=== PATIENT | male | born 1955 | race Caucasian/White ===

== ENCOUNTER 2022-05-16 09:16 | Outpatient (CLI) | payer BC, SELFPAY ==
[2022-05-16 12:59] LABS: Albumin* 4.3 g/dL (3.3-5.0); Chloride* 105 mmol/L (96-114); Sodium* 140 mmol/L (135-149)
[2022-05-16 13:00] LABS: Potassium* 4.7 mmol/L (3.6-5.1)
[2022-05-16 13:01] LABS: Cholesterol* 187 mg/dL (90-199)
[2022-05-16 13:02] LABS: Alanine Aminotransferase* 40 U/L (4-50); Alkaline Phosphatase* 70 U/L (40-150); Aspartate Amino Transferase* 28 U/L (12-35); Bilirubin Total* 0.7 mg/dL (0.1-1.5); Blood Urea Nitrogen* 24 mg/dL (7-30); Carbon Dioxide* 30 mmol/L (20-32); Creatinine* 1.1 mg/dL (0.5-1.5); Estimated Glomerular Filt Rate 75 ml/min; Glucose* 100 mg/dL (60-115); Total Protein* 6.9 g/dL (6.0-8.3); Triglycerides* 185 mg/dL (40-149)
[2022-05-16 13:03] LABS: Calcium* 9.3 mg/dL (8.4-10.6); HDL Cholesterol* 44 mg/dL (>=40); LDL Cholesterol Calculated 106 mg/dL (<100)
[2022-05-16 13:28] LABS: PSA Screen* 2.29 ng/mL (0.10-4.00)
== END 2022-05-16 09:17 | disposition home or self-care (01) ==
PROVIDERS: PCP Family Medicine; Visit Provider Family Medicine
DX: Z00.00 Encounter for general adult medical examination without abnormal findings (principal); R03.0 Elevated blood-pressure reading, without diagnosis of hypertension; Z12.5 Encounter for screening for malignant neoplasm of prostate; Z12.11 Encounter for screening for malignant neoplasm of colon; Z13.6 Encounter for screening for cardiovascular disorders
CPT/HCPCS: 80053; 80061; 84153

== ENCOUNTER 2022-06-12 08:35 | Outpatient (CLI) | payer BC, SELFPAY | END 2022-06-12 08:36 | disposition home or self-care (01) | LOC: OP CLINIC 08:36 | PROVIDERS: PCP Family Medicine; Visit Provider Surgery | DX: Z12.11 Encounter for screening for malignant neoplasm of colon (principal); K63.5 Polyp of colon | CPT/HCPCS: 45385; 88305; J1200; J2250; J3010 ==

== ENCOUNTER 2024-12-22 09:14 | Outpatient (CLI) | payer OTHER, SELFPAY | END 2024-12-22 09:15 | disposition home or self-care (01) | LOC: NFLDREF 12-27 12:40 | PROVIDERS: Visit Provider Family Medicine | DX: Z00.00 Encounter for general adult medical examination without abnormal findings (principal); Z13.6 Encounter for screening for cardiovascular disorders; Z13.1 Encounter for screening for diabetes mellitus; Z12.5 Encounter for screening for malignant neoplasm of prostate | CPT/HCPCS: 80053; 80061; G0103 ==

== ENCOUNTER 2025-03-13 15:44 | Outpatient (CLI) | payer OTHER, SELFPAY | END 2025-03-13 15:45 | disposition home or self-care (01) | LOC: CT 15:46 | PROVIDERS: PCP Family Medicine; Visit Provider Orthopaedic Surgery Sports Medicine | DX: M17.12 Unilateral primary osteoarthritis, left knee (principal); Z01.818 Encounter for other preprocedural examination; Z96.652 Presence of left artificial knee joint | CPT/HCPCS: 73700 ==

== ENCOUNTER 2025-04-05 06:57 | Day surgery (SDC) | payer OTHER, SELFPAY ==
[2025-04-05] VITALS (19 sets, daily range): BP systolic 84–147; BP diastolic 48–99; PULSE 65–92; RESP 12–21; TEMP 35.8–37.1; O2SAT 86–98; BMI 29.5
[2025-04-05] MEDS: SODIUM CHLORIDE 0.9 % (FLUSH) 10 ML SYRINGE IVF (07:30)
[2025-04-05] MEDS: LACTATED RINGERS 1000 ML 1,000 ML 100 ML IV ×3 (07:30→12:50)
--- NOTE | 2025-04-05 07:42 | W.PM.H&PU ---
History & Physical Update History & Physical Update H&P Reviewed and patient assessed: No changes noted
--- NOTE | 2025-04-05 08:29 | SUR.PREOP ---
TIME?OUT:?0830 PT/RN/MDA?VERIFICATION?OF?SURGICAL?SITE,?PROCEDURE,?AND?CONSENT OBTAINED?PRIOR?TO?INVASIVE?PROCEDURE.
[2025-04-05] MEDS: ACETAMINOPHEN 500 MG TABLET 1000 MG PO (08:30)
[2025-04-05] MEDS: OXYCODONE (CR) 10 MG TAB.ER.12H PO (08:30)
[2025-04-05] MEDS: MIDAZOLAM HCL 1 MG/ML inj IVP (08:31)
[2025-04-05] MEDS: TRANEXAMIC ACID 100 MG/ML INJ 1000 MG IV (09:17)
--- NOTE | 2025-04-05 10:40 | P.ORPRC_ITS ---
Procedure Note Date of procedure: 04/05/25 Procedure: PREOPERATIVE DIAGNOSIS: 1. Left knee osteoarthritis, primary, severe 2. Multiple osteochondromatosis POSTOPERATIVE DIAGNOSIS: 1. Left knee osteoarthritis, primary, severe 2. Multiple osteochondromatosis PROCEDURE: 1. Left total knee arthroplasty, Press-Fit, Rotating Platform - No tourniquet SURGEON: Rajeev Yip MD. CUFFING MACHINE OPERATOR: AKILA Morris - Of note, a skilled curriculum assistant was critical for this case to aid in patient positioning, tissue retraction, limb manipulation/positioning, and closure. ANESTHESIA: Spinal anesthetic EBL: 100ml IMPLANTS: DePuy J&J uncemented TKA - Attune PS pressfit femur size 7 - utilizing [employer] femoral jig Size 6 pressfit tibia Rotating Platform 5mm RP poly spacer 38 mm Affixium patella TOURNIQUET: None COMPLICATIONS: None evident INDICATIONS: The patient is a pleasant 69-year-old male who has experienced severe left knee pain and difficulty bearing weight. Workup included x-rays which revealed severe osteoarthrosis in the knee. Given the deformity, the dysfunction, and the pain, as well as the failure of nonoperative management, recommendation was made for surgery. FINDINGS: Full-thickness chondral loss diffusely throughout the knee including all 3 compartments. Degenerative meniscus pathology medial greater than lateral. Moderate effusion upon entering the joint. Multiple osteochondromas encountered throughout the distal femur and proximal tibia. DESCRIPTION OF PROCEDURE: Following a thorough discussion of risks, benefits, and alternatives consent was obtained and the left knee was marked. The patient was brought to the operating room and placed supine on the operating table. Induction of anesthesia was undertaken. 2 g IV Ancef and 1 g tranexamic acid was administered within 1 hr of incision preoperatively. Proper time-out was performed identifying proper patient, site, procedure. The operative extremity was prepped and draped in the appropriate sterile fashion using ChloraPrep after the patient was positioned supine with all bony prominences well padded. A longitudinal, anterior, midline skin incision was made starting approximately 3cm proximal to the superior pole of the patella and advanced distal to the tibial tubercle. A sub vastus approach was utilized. After mobilizing the patella, retropatellar fatpad was resected and the synovium in the suprapatellar pouch excised to visualize the anterior femoral cortex. Patellar prep showed initial measurement/thickness of 24 mm. It was resected back to approximately 14 mm. The patella prep was completed with drilling and a trial placed followed by a protector plate until final component implantation. Femoral preparation was performed utilizing [employer] femoral jig. Consistent with the preoperative plan/template, the distal cutting guide was placed with 9? of valgus and 11 mm cut on the distal femur due to a 18-20+ degree flexion contracture. Femur was sized consistent with the preoperative plan to a size 7 with rotation established from the plan. This was double checked with an Meet wing. This was found to have a best fit with the sizing noted above. The 4 in 1 cutting block was then placed, and the distal femur shaped accordingly. The box cut was then completed. We turned our attention to the proximal tibia. Extramedullary guide was utilized for cutting with the goal of being 90 degree cut from the mechanical axis of the tibia in the varus/valgus plane utilizing tibial crest as the primary alignment. Initially a 3 mm resection was performed from the medial tibial plateau. An additional 2 mm of tibial resection was needed to achieve proper balance in both flexion & extension. Ultimately, balancing was achieved in both flexion and extension in both varus and valgus. The knee was able to achieve full extension comfortably. It was sized to be a best fit with as noted above. At this stage, trial implants were removed, the tibia and femoral and patellar components were opened and inserted. The real poly spacer was opened and inserted. A 3 min Betadine soak performed. Finally, a final irrigation round with normal saline was performed. Closure performed with 0 PDS and #0 Stratafix for the quad tendon/retinaculum. 2-0 Vicryl/Stratafix for the subcutaneous and 4-0 Monocryl for subcuticular closure. Dressings were applied and the patient was awoken from anesthesia and transferred the PACU in stable condition. A skilled curriculum assistant was critical for this case to aid in patient positioning, tissue retraction, bone exposure, limb manipulation/positioning, patient safety, and closure. PLAN: 1. Weight bear as tolerated operative extremity. 2. 23 hr perioperative antibiotics. 3. Ice. 4. PT/OT consults for ambulation assistance/mobility education. 5. Social work consult for discharge planning. 6. DVT prophylaxis with at SCDs, and aspirin twice daily.
--- NOTE | 2025-04-05 10:59 | P.NB_ITS ---
Nerve Block Nerve Block Time Seen by Provider: 08:30 Date Seen: 04/05/25 Type of block requested by surgeon for post-operative analgesia: geniculars Side: left Time out performed: Yes Verification of patient name: Yes Verification of date of : Yes Site marking: site marked Name of person performing procedure: Wei Continuous monitoring Was continuous monitoring of O2 sat, B/P, secured entrance monitor, recorded every 15 minutes?: Yes Procedure Checklist: sterile prep, needles and gloves Ultrasound guided. Images saved: Yes Medications given in 5ml increments after negative aspiration: Marcaine %: 0.25 mL: 9 Needle gauge: 25 Patient tolerated procedure well: Yes Block Charges Block Charge (with Pro Fee): Genicular Nerve Block
--- NOTE | 2025-04-05 10:59 | P.NB_ITS ---
Nerve Block Nerve Block Time Seen by Provider: 08:30 Date Seen: 04/05/25 Type of block requested by surgeon for post-operative analgesia: adductor canal Side: left Time out performed: Yes Verification of patient name: Yes Verification of date of : Yes Site marking: site marked Name of person performing procedure: Wei Continuous monitoring Was continuous monitoring of O2 sat, B/P, medical equipment repair technician, recorded every 15 minutes?: Yes Procedure Checklist: sterile prep, needles and gloves Ultrasound guided. Images saved: Yes Medications given in 5ml increments after negative aspiration: Marcaine %: 0.25 mL: 15 Needle gauge: 20 Precedex (mcg): 25 Patient tolerated procedure well: Yes Block Charges Block Charge (with Pro Fee): Femoral Nerve Use of Ultrasound Machine for Block: Yes- US Guidance/pain block
--- NOTE | 2025-04-05 11:10 | CRLHL7_ITS ---
For Patients: As a result of the Cures Act, medical imaging exams and procedure reports are released immediately into your electronic medical record. You may view this report before your referring provider. If you have questions, please contact your health care provider. Indication: Postop Technique: Two views left knee Findings/Impression: Hardware from a left total knee arthroplasty is in satisfactory position. Bone alignment is normal. No sign of acute fracture. Postop changes are within normal limits. Multiple chronic changes are present elsewhere. Dictated by Uri Ward MD @ 04/05/2025 12:52:16 PM (Electronically Signed)
--- NOTE | 2025-04-05 11:11 | P.ANES_ITS ---
Anesthesia Charges Start Date/Time Anesthesia Start Date: 04/05/25 Anesthesia Start Time: 09:03 Stop Date/Time Anesthesia Stop Date: 04/05/25 Anesthesia Stop Time: 11:13 Coding CPT Codes CPT Codes: ANESTH KNEE ARTHROPLASTY - 20474 ([id number]) P2 - PATIENT W/MILD SYST DISEASE, QK - CLINICAL STAFF ANESTHESIOLOGIST 2-4 CNCRNT ANES PROC, QX - CONCAVER SVC W/ MD MED DIRECTION
--- NOTE | 2025-04-05 11:11 | W.ANESCHARGE ---
Anesthesia Charges Start Date/Time Anesthesia Start Date: 04/05/25 Anesthesia Start Time: 09:03 Stop Date/Time Anesthesia Stop Date: 04/05/25 Anesthesia Stop Time: 11:13 Coding CPT Codes CPT Codes: ANESTH KNEE ARTHROPLASTY - 19172 ([id number]) P2 - PATIENT W/MILD SYST DISEASE, QK - GRAIN OPERATIONS MANAGER 2-4 CNCRNT ANES PROC, QX - DEVELOPER AUTOMATIC SVC W/ MD MED DIRECTION
--- NOTE | 2025-04-05 11:52 | SUR.PHASEI ---
patient met discharge criteria per anesthesia
[2025-04-05] MEDS: IBUPROFEN 200 MG TABLET 600 MG PO (12:05)
--- NOTE | 2025-04-05 12:58 | P.ANES_ITS ---
Anesthesia Charges Start Date/Time Anesthesia Start Date: 04/05/25 Anesthesia Start Time: 09:03 Stop Date/Time Anesthesia Stop Date: 04/05/25 Anesthesia Stop Time: 11:13 Coding CPT Codes CPT Codes: ANESTH KNEE ARTHROPLASTY - 71845 ([id number]) QK - STAFFING RECRUITER 2-4 CNCRNT ANES PROC, QX - PANTRY ATTENDANT SVC W/ MD MED DIRECTION, P2 - PATIENT W/MILD SYST DISEASE
--- NOTE | 2025-04-05 12:58 | W.ANESCHARGE ---
Anesthesia Charges Start Date/Time Anesthesia Start Date: 04/05/25 Anesthesia Start Time: 09:03 Stop Date/Time Anesthesia Stop Date: 04/05/25 Anesthesia Stop Time: 11:13 Coding CPT Codes CPT Codes: ANESTH KNEE ARTHROPLASTY - 02976 ([id number]) QK - AMBULANCE OFFICER 2-4 CNCRNT ANES PROC, QX - [employer] H[employer]ORY PROFESSOR SVC W/ MD MED DIRECTION, P2 - PATIENT W/MILD SYST DISEASE
--- NOTE | 2025-04-05 13:30 | SUR.PHASEII ---
Attempted to get pt up to the bathroom. Pt able to stand with assist of 2 RN's and walker, but legs still weak, especially left leg. Able to march in place but not strong enough to walk to restroom. Will attempt again in a bit.
--- NOTE | 2025-04-05 15:32 | SUR.PHASEII ---
PT with projectile vomiting of 16 oz after back from PT.
== END 2025-04-05 17:18 | disposition home or self-care (01) ==
LOC: OR 06:59
PROVIDERS: PCP Family Medicine; Visit Provider Orthopaedic Surgery Sports Medicine
PROC: (CPT 27447; principal; 2025-04-05 09:00)
DX: M17.12 Unilateral primary osteoarthritis, left knee (principal); D16.22 Benign neoplasm of long bones of left lower limb; G89.18 Other acute postprocedural pain
CPT/HCPCS: 27447; 01402; 64447; 64454; 73560; 76942; 97110; 97116; 97161; A9270; C1776; J0665; J0690; J2250; J2371; J2704; J3010; J3490; J7120

== ENCOUNTER 2025-04-18 14:28 | Outpatient (CLI) | payer OTHER, SELFPAY ==
--- NOTE | 2025-04-18 14:45 | CRLHL7_ITS ---
For Patients: As a result of the Century Cures Act, medical imaging exams and procedure reports are released immediately into your electronic medical record. You may view this report before your referring provider. If you have questions, please contact your health care provider. INDICATION: Leg pain and swelling. TECHNIQUE: Ultrasound venous duplex lower left extremity. Compression venous exam was performed using butt-scale, color Doppler, and spectral Doppler analysis. COMPARISON: None. FINDINGS: Deep veins: Sonographic imaging demonstrates the left common femoral, deep femoral, superficial femoral, popliteal, posterior tibial and the contralateral right common femoral veins to be fully compressible with normal color Doppler blood flow. Superficial veins: Greater saphenous vein is fully compressible. No popliteal cyst. IMPRESSION: No evidence of venous thrombosis in the examined veins. Dictated by Purvi Zhang MD @ 04/18/2025 3:09:25 PM (Electronically Signed)
== END 2025-04-18 14:29 | disposition home or self-care (01) ==
PROVIDERS: PCP Family Medicine; Visit Provider Physician Assistant Surgical
DX: R22.42 Localized swelling, mass and lump, left lower limb (principal)
CPT/HCPCS: 93971